=== PATIENT | female | born 1990 | race Caucasian/White ===

== ENCOUNTER 2016-04-06 14:24 | Emergency (ER) | payer SELFPAY ==
[2016-04-06 15:30] VITALS: BMI 21.9
[2016-04-06 15:31] VITALS: TEMP 98.3
--- NOTE | 2016-04-06 16:36 | EDPRACDOC ---
- General Information Chief Complaint: Abdominal Pain Stated Complaint: ABD PAIN/ FEVER (PREG?) Time Seen by Provider: 04/06/16 16:10 Information Source: Patient Mode Of Arrival: Car Home Medications: Home Medications Ferrous Sulfate 324 mg PO BID #60 tab 07/21/15 Folic Acid 1 mg PO DAILY #30 tablet 07/21/15 Hydrocodone/Acetaminophen [Lortab 5-325 mg Tablet] 1 each PO Q4H PRN #15 tablet 07/21/15 Ibuprofen 600 mg PO Q6H PRN #20 tablet 07/21/15 Amoxicillin Trihydrate [Amoxicillin] 500 mg PO TID #30 tab 04/06/16 Vits W-Ca,Fe,FA(<1Mg) [] 1 each PO DAILY #30 tablet 04/06/16 Allergies/Adverse Reactions: Allergies Allergy/AdvReac Type Severity Reaction Status Date / Time cefprozil [From Cefzil] Allergy Unknown Hives* Verified 04/06/16 15:29 - History of Present Illness Onset: SEVERAL DAYS HPI: TWO DAYS LOW-GRADE FEVER, BILATERAL LOWER QUADRANT CRAMPY PAIN, AND NONPRODUCTIVE COUGH. SHE THINKS AT LEAST 2 MONTHS, NO CARE. Pain Location: Reports: RLQ, LLQ, Suprapubic Pain Context: Reports: Spontaneous Pain Severity: Mild Pain Quality: Reports: Colicky, Cramping Pain Radiation: Reports: No Radiation Last Menstrual Period: 12/30/15 : Yes (UNSURE HOW FAR ALONG.) : 3 Para: 2 Female Associated Signs & Symptoms: Reports: Nausea, Fever (LOW-GRADE FOR 2 DAYS ). 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 negative: Exudate, Membranes Dry, Tonsillar Hypertrophy, [place] Nose: No Symptoms Reported Neck: Normal. negative: Limited ROM, Lymphadenopathy, Meningeal Signs - Respiratory/Cardiovascular Respiratory: Normal - CTA. negative: Accessory Muscle Use, Rales, Tachypnea Cardiovascular: Normal - GI Auscultation: Normal Palpation: Normal Tenderness: Mild. negative: Guarding, RLQ, LLQ, Rebound, Rigidity, Suprapubic Nevarez's Sign: Negative - Bladder: Tender - Musculoskeletal Back: Normal. negative: CVA Tenderness Extremities: Normal - Integumentary Skin: Normal - Neurologic Memory Impaired: Normal Motor Function: Normal Mood Description: Normal ED Procedures - Ultrasound:Limited Abdominal/Renal Indication: Uterus Findings: IUP (HC 13.2 CM FOR 16 WKS 6 DAY, FHR NORMAL, AF GROSSLY NL.) - Results Urine Color Kalli 04/06/16 16:40 Urine Clarity Cldy 04/06/16 16:40 Urine pH 6.0 (5.0-8.0) 04/06/16 16:40 Ur Specific [place] 1.030 (1.003-1.035) 04/06/16 16:40 Urine Protein 1+ (NEG/TRACE) H 04/06/16 16:40 Urine Glucose (UA) Neg (NEGATIVE) 04/06/16 16:40 Urine Ketones Neg (NEGATIVE) 04/06/16 16:40 Urine Occult Blood Neg (NEG/TRACE) 04/06/16 16:40 Urine Nitrite Neg (NEGATIVE) 04/06/16 16:40 Urine Bilirubin Neg (NEGATIVE) 04/06/16 16:40 Urine Urobilinogen 2 MG/DL (0-1) H 04/06/16 16:40 Ur Leukocyte Esterase 2+ (NEGATIVE) H 04/06/16 16:40 Urine RBC 10-20 (0-5) H 04/06/16 16:40 Urine WBC 40-50 (0-5) H 04/06/16 16:40 Ur Epithelial Cells 3+ 04/06/16 16:40 Urine Bacteria Few (NEG/FEW) 04/06/16 16:40 Urine Mucus Large (NEG/OCC) 04/06/16 16:40 Microbiology 04/06/16 16:40 Influenza Type A Antigen Screen - Final N/P - Naso/Pharyngeal NEGATIVE Please note: A NEGATIVE result does not exclude an influenza virus infection. It is a presumptive result and, if required, confirmation should be done using either a virus culture or an FDA-cleared influenza A&B molecular assay. ("NORMAL" value = "NEGATIVE".) Influenza Type B Antigen Screen - Final NEGATIVE Please note: A NEGATIVE result does not exclude an influenza virus infection. It is a presumptive result and, if required, confirmation should be done using either a virus culture or an FDA-cleared influenza A&B molecular assay. ("NORMAL" value = "NEGATIVE".) 04/06/16 16:40 Group A Streptococcus Rapid Screen - Final Throat - Rapid Strep NEGATIVE ("NORMAL" value = "NEGATIVE".) Lab Results 04/06/16 16:40 Urine Color Kalli Urine Clarity Cldy Urine pH 6.0 Ur Specific [place] 1.030 Urine Protein 1+ H Urine Glucose (UA) Neg Urine Ketones Neg Urine Occult Blood Neg Urine Nitrite Neg Urine Bilirubin Neg Urine Urobilinogen 2 H Ur Leukocyte Esterase 2+ H Urine RBC 10-20 H Urine WBC 40-50 H Ur Epithelial Cells 3+ Urine Bacteria Few Urine Mucus Large - Departure Disposition: Home Condition: Stable Final Diagnosis: Second trimester , Urinary tract infection Upper respiratory infection Qualifiers: URI type: unspecified viral URI Qualified Code(s): J06.9 - Acute upper respiratory infection, unspecified Instructions: Upper Respiratory Infection (ED), Acute Abdominal Pain (ED), Urinary Tract Infection in Women (ED), Dysuria Education/Counseling Given To: Patient, Significant Other Education/Counseling Given Regarding: Diagnosis, Treatment, Prognosis Referrals: Estrada Dejesus MD [Staff Physician] - One Week Prescriptions: Amoxicillin Trihydrate [Amoxicillin] 500 mg PO TID #30 tab Vits W-Ca,Fe,FA(<1Mg) [] 1 each PO DAILY #30 tablet Additional Instructions: 640 Return to the Emergency Department for worse or different abdominal problems, especially in the next 12 - 24 hours. The test today did not determine the cause of your pain..
[2016-04-06 17:09] LABS: LEUKOCYTES/URINE 2+ (NEGATIVE); NITRITE/URINE NEG (NEGATIVE); URINE OCCULT BLOOD NEG (NEG/TRACE); WBC/URINE 40-50 (0-5)
[2016-04-06] MEDS ORDERED: AMOXICILLIN 500 MG CAP PO ONE (17:27)
[2016-04-06 17:44] VITALS: BP 90/51; PULSE 111
== END 2016-04-06 17:41 | disposition home or self-care (01) ==
LOC: ED 14:24
DX: O23.42 Unspecified infection of urinary tract in pregnancy, second trimester (principal); Z3A.00 Weeks of gestation of pregnancy not specified; O98.812 Other maternal infectious and parasitic diseases complicating pregnancy, second trimester; J06.9 Acute upper respiratory infection, unspecified
CPT/HCPCS: 81001; 87804; 87880; 99283; J3490